=== PATIENT | male | born 1980 | race Caucasian/White ===

== ENCOUNTER 2024-11-15 02:05 | Inpatient (IN) | payer MEDICAID, SELFPAY ==
[2024-11-15] VITALS (20 sets, daily range): BP systolic 128–169; BP diastolic 85–113; PULSE 76–144; RESP 12–30; TEMP 36.1–36.7; O2SAT 90–100; BMI 26.2; BMI 26.0
--- NOTE | 2024-11-15 02:13 | ED.RN ---
DAD CALLED ABOUT PT AND WANTED TO LEAVE PHONE NUMBER MANDA JAYE [phone]
[2024-11-15] MEDS: Ondansetron 4 MG/2 ML Vial IV (02:15)
[2024-11-15] MEDS: MethylPREDNISolone 125 MG/2 ML Vial IV (02:15)
[2024-11-15] MEDS: Morphine 4 MG/ML Syringe IV (02:15)
[2024-11-15] MEDS: Ipratropium/Albuterol Sulfate 3 ML AMPUL.NEB INHALATION ×4 (02:15→19:14)
[2024-11-15] MEDS: 0.9% Normal Saline (1000mL) 1,000 ML 999 ML IV ×3 (02:16→04:38)
[2024-11-15 02:19] LABS: Absolute Lymphocyte Count 6.33 X10^3/uL (0.83-4.51); Absolute Neutrophil Count 10.3 X10^3/uL (2.0-7.7); Basophil% 0.5 % (0-1); Eosinophil# 0.66 X10^3/uL; Eosinophils% 3.5 % (0-5); Hematocrit 50.8 % (40-54); Lymphocyte # 6.33 X10^3/ul (0.83-4.51); Lymphocyte % 33.9 % (19-41); Mean Corp Hgb Conc 33.5 g/dL (32-36); Mean Corpuscular Volume 86.7 fL (80-94); Mean Platelet Vol. 9.2 fl (6.2-12.0); Monocyte# 1.26 X10^3/uL; Monocyte% 6.7 % (0-10); NRBC Flagged by Analyzer 0 % (0-5); Neutrophil # 10.25 X10^3/uL (2.7-7.7); POSITIVE DIFFERENTIAL YES; POSITIVE MORPHOLOGY YES; Platelet Count 349 K/mm3 (150-450); RBC Distribution Width CV 12.2 % (11.6-14.6); RBC Distribution Width SD 38.5 fl (35.1-43.9); Red Blood Count 5.86 M/mm3 (4.6-6.2); White Blood Count 18.7 K/mm3 (4.4-11.0)
[2024-11-15 02:30] LABS: Allen Test Positive; Base Excess -2 mmol/L (-2 to +2); Blood Gas Specimen Type ART; Mode Not entered; O2 Delivery Device BiPAP; PEEP 10; PIP 16; PO2 165 mmHG (75-100); RR 12; SITE R Radial; SO2 99 % (95-99); Total Carbon Dioxide 28 mmol/L; pCO2 68.8 mmHg (35-45); pH 7.19 (7.35-7.45)
[2024-11-15 02:35] LABS: Differential Indicated SCAN CRITERIA MET
--- NOTE | 2024-11-15 02:36 | CPS ---
Critical ABG values, Dr. Aguillon aware.
[2024-11-15 02:37] LABS: Anion Gap 5 (5-15); BUN 11 mg/dL (7-18); Calcium,Total 8.8 mg/dL (8.5-10.1); Chloride 106 mmol/L (98-107); Creatinine, Serum 0.85 mg/dL (0.70-1.30); EST Glomerular Filtration Rate 105 mL/min (>60); Est Glom Filt Rate - Afr Amer 127 mL/min (>60); Estimated Creatinine Clearance 124.26 ml/min; Glucose 192 mg/dL (74-106); Magnesium 2.3 mg/dL (1.6-2.6); Potassium 4.4 mmol/L (3.5-5.1); Sodium Level 135 mmol/L (136-145)
[2024-11-15 02:49] LABS: Lactic Acid 5.4 mmol/L (0.4-1.9)
--- NOTE | 2024-11-15 02:50 | RAD_ITS ---
INDICATION: dyspnea EXAMINATION/TECHNIQUE: X-RAY - XR Chest 1 View COMPARISON: None. Findings: 2 frontal views of the chest. LUNG PARENCHYMA: No acute focal airspace disease or mass lesion. PLEURA: No pleural effusion. No pneumothorax. HEART/GREAT VESSELS: Cardiomediastinal silhouette is unremarkable. BONES: Osseous structures are unremarkable for age. RAD/Chest 1 View (Portable) IMPRESSION: Chest with no acute disease. Electronically Signed: Chevy Ramos MD at 4:40 EST ,
[2024-11-15 03:35] LABS: Allen Test Positive; Base Excess -1 mmol/L (-2 to +2); Bicarbonate 24.9 mmol/L (22-26); Blood Gas Specimen Type ART; Mode Not entered; O2 Delivery Device BiPAP; PEEP 10; PIP 22; PO2 104 mmHG (75-100); RR 12; SITE R Radial; SO2 98 % (95-99); Total Carbon Dioxide 26 mmol/L; pCO2 47.7 mmHg (35-45); pH 7.33 (7.35-7.45)
[2024-11-15 03:37] LABS: Atypical Lymphocyte 2+ %; Differential Comment SCANNED
[2024-11-15 04:06] LABS: Procalcitonin 0.08 ng/mL (0.00-0.09)
[2024-11-15] MEDS: Ceftriaxone 2 GM in 0.9% Normal Saline (50mL MB+) 50 ML IV (04:09)
[2024-11-15] MEDS: Azithromycin 500 MG in 0.9% Normal Saline (250mL Bag) 250 ML 255 MG IV (04:38)
--- NOTE | 2024-11-15 04:46 | HP.PCM.HOS_ITS ---
[facility] - General General Date of Admission: 11/15/24 Date of Service: 11/15/24 Chief Complaint: Shortness of breath HPI Narrative JUAN CEE, is a 44 M who presented to [facility] on 11/15/2024 with severe shortness of breath. Patient has history of asthma and tobacco abuse. He smokes about 1 pack of cigarettes daily. He noted that he was hospitalized about 2 years ago at [facility] for a severe asthma exacerbation. He did not require intubation at that time. He was in his normal state of health earlier today. However, he developed acute shortness of breath with wheezing tonight and EMS was called. States he simply got up to go to the bathroom when he developed this. He lives at home with his dad. On arrival EMS noted that patient had significant increased work of breathing and was satting in the mid 80s on room air. On arrival to the ED here he was on BiPAP and had respiration rate in the 30s with oxygen saturations in the low 90s. Was tachycardic to the 140s. Labs showed WBC count 18, lactic acid 5.4. Initial ABG on BiPAP showed pH 7.19, pO2 165, pCO2 68. Patient was given a breathing treatment with significant improvement. Repeat ABG about 1 hour later while still on BiPAP showed pH 7.33 and pCO2 47. Chest x-ray was unremarkable. CTA chest with read pending but no PE noted and lung knight clear. COVID/flu/RSV negative. Given his suspected asthma exacerbation with acute respiratory failure, hospitalist was contacted for admission. I saw the patient at bedside in the ED. Patient had been weaned to 3 L nasal cannula when I saw him and was breathing comfortably on this with saturations in the mid to high 90s. He was fatigued appearing but was otherwise laying back comfortably in bed and conversing normally. Patient states he feels significantly better now than he did earlier tonight. Patient notes he has had intermittent mild shortness of breath over the past few weeks. Denies any fevers or chills or any URI symptoms. He has an old rescue inhaler that he tried using multiple times but he states it was not effective. Otherwise patient denies any pain or discomfort currently. No other acute concerns. [facility] Medical History Asthma Home Medications ?Medication ?Instructions ?Recorded ?Last Taken ?Type albuterol sulfate .ROUTE 11/15/24 Unknown History Allergy/AdvReac Type Severity Reaction Status Date / Time Unable to Assess Allergy Verified 11/15/24 02:06 Social History Smoking Status: Heavy Smoker (>10/day) ROS Constitutional Constitutional: Reports fatigue; Denies chills, fever(s) or weakness Eyes Eyes: Denies change in vision ENT HEENT: Denies nasal congestion or nasal discharge Cardiovascular Cardiovascular: Denies chest pain, edema or lightheadedness Respiratory/Chest Respiratory/Chest: Reports cough, shortness of breath at rest, shortness of breath with exertion and wheezing; Denies productive cough Gastrointestinal Gastrointestinal: Denies constipation, diarrhea, nausea or vomiting Musculoskeletal Musculoskeletal: Denies arthralgias or myalgias Neurologic Neurologic: Denies dizziness, focal weakness or headache(s) Vital Signs Vital Signs Vital Signs: 11/15/24 02:06 11/15/24 02:06 11/15/24 02:12 Temperature 97 F L Temperature Source Temporal Pulse Rate 144 H 128 H Respiratory Rate 30 H 26 H Respiratory Effort Short of Breath Labored Accessory Muscle Use Respiratory Depth Deep Respiratory Pattern Tachypnea Tachypnea Blood Pressure 128/113 H Blood Pressure Mean 118 Pulse Ox 90 99 Oxygen Delivery Method Bi-pap Bi-pap Oxygen Flow Rate (L/min) Fraction of Inspired Oxygen (FIO2) 50 11/15/24 02:30 11/15/24 02:30 11/15/24 02:55 Temperature 97.6 F L Temperature Source Temporal Pulse Rate 111 H 111 H 125 H Respiratory Rate 23 H 25 H 25 H Respiratory Effort Respiratory Depth Respiratory Pattern Normal Tachypnea Blood Pressure 128/113 H Blood Pressure Mean 118 Pulse Ox 99 99 Oxygen Delivery Method Bi-pap Oxygen Flow Rate (L/min) Fraction of Inspired Oxygen (FIO2) 30 50 11/15/24 03:06 11/15/24 04:00 11/15/24 04:41 Temperature 97.9 F Temperature Source Pulse Rate 104 H 93 85 Respiratory Rate 17 18 18 Respiratory Effort Respiratory Depth Respiratory Pattern Blood Pressure 130/89 H 147/93 H 155/95 H Blood Pressure Mean 102 111 115 Pulse Ox 99 98 98 Oxygen Delivery Method Bi-pap Bi-pap Oxygen Flow Rate (L/min) 30 Fraction of Inspired Oxygen (FIO2) 30 Weight Weight: 87.9 kg Body Mass Index (BMI) 26.2 Physical Exam Const alert, oriented x3, no apparent distress and average body habitus Constitutional Narrative: Middle-age male, mildly fatigued and unkempt appearing but otherwise laying back comfortably in bed, conversing normally, in no acute distress. General Appearance: cooperative and comfortable HEENT normocephalic, head/scalp atraumatic, hearing grossly normal bilaterally, nasal mucous membranes and turbinates normal and moist oral mucous membranes Eyes PERRL, EOMs intact bilaterally and conjunctivae normal Lymph Lymphatic: no lymphadenopathy noted Chest inspection of chest normal Resp normal respiratory effort and no use of accessory muscles Resp Narrative: Breathing comfortably on 3 L nasal cannula at rest. Moderate diffuse wheezing noted in bilateral lungs throughout but he does have good air movement bilaterally. No crackles noted. Cardio regular rate, regular rhythm, no murmurs and peripheral pulses 2+ throughout GI normal to inspection, nondistended, normoactive bowel sounds, soft to palpation, non-tender and non-distended Back/Spine normal ROM Extremity normal to inspection, full ROM and no pedal edema Skin no rashes or lesions noted Psych mental status grossly normal Results Lab / Micro Data 11/15/24 02:09 11/15/24 02:09 Labs: Laboratory Results - last 24 hr 11/15/24 02:09: WBC 18.7 H, RBC 5.86, Hgb 17.0 H, Hct 50.8, MCV 86.7, MCH 29.0, MCHC 33.5, RDW Std Deviation 38.5, RDW Coeff of Hilda 12.2, Plt Count 349, MPV 9.2, Immature Gran % (Auto) 0.400, Neut % (Auto) 55.0, Lymph % (Auto) 33.9, [place] % (Auto) 6.7, Eos % (Auto) 3.5, Baso % (Auto) 0.5, Absolute Neuts (auto) 10.3 H, Absolute Lymphs (auto) 6.33 H, Nucleated RBC % 0, Differential Comment SCANNED, Atypical Lymphocytes 2+, Sodium 135 L, Potassium 4.4, Chloride 106, Carbon Dioxide 24.0, Anion Gap 5, BUN 11, Creatinine 0.85, Estim Creat Clear Calc 124.26, Est GFR (MDRD) Af Amer 127, Est GFR (MDRD) Non-Af 105, BUN/Creatinine Ratio 13.0, Glucose 192 H, Lactic Acid 5.4 H*, Calcium 8.8, Magnesium 2.3 11/15/24 03:26: Procalcitonin 0.08 Micro: Microbiology 11/15/24 03:00 Mucosa - Nose SARS-CoV-2, Influenza & RSV (PCR) - Final ABG Data ABG results: ABG 11/15/24 11/15/24 02:25 03:32 Specimen Type ART ART Sample Site R Radial R Radial pH 7.19 L* 7.33 L Bicarbonate Actual 26.0 24.9 Total CO2 28 26 Base Excess -2 -1 O2 Saturation 99 98 O2 % 50.0 30.0 ABG pCO2 68.8 H* 47.7 H ABG pO2 165 H 104 H Chuy Test Positive Positive Respiration Rate 12 12 O2 Delivery Device BiPAP BiPAP Vent Mode Not entered Not entered Tidal Volume 450.0 POC PEEP 10 10 Peak Inspir Pressure 16 22 Crit Call To/Read Back Yes Blood Gas Notified Time 02:27:10 Imaging Radiology Impression Chest X-Ray 11/15/24 02:50 IMPRESSION: Chest with no acute disease. Electronically Signed: Chevy Ramos MD at 4:40 EST , Assessment & Plan Assessment/Plan (1) Asthma exacerbation: (2) Acute respiratory failure with hypoxia and hypercapnia: PLAN: Plan Patient is a 44-year-old male who presented [facility] ED on 11/15/2024 with shortness of breath. 1. Acute hypoxic and hypercapnic respiratory failure suspected secondary to asthma exacerbation ? Admit under inpatient status to ICU. Dust Collector Attendant consulted. Initial ABG on BiPAP in ED showed pH 7.19, pCO2 68. Given breathing treatment with repeat ABG on BiPAP that showed pH 7.33, pCO2 47. Weaned to 3 L nasal cannula in the ED and patient maintaining good oxygen saturations. Chest x-ray and CTA chest showed hyperinflation but otherwise were unremarkable. Patient does remain diffusely wheezy on exam. Seems most consistent with an asthma exacerbation. Will treat with IV steroids and scheduled DuoNebs for now. Wean supplemental oxygen as able. 2. Tobacco use disorder ? Smokes 1 pack of cigarettes per day. Discussed cessation. Denied need for nicotine replacement therapy while inpatient. 3. Elevated lactic acid ? Lactic acid 5.4 on admit. Presume secondary to severe increased work of breathing from asthma exacerbation. Follow-up repeat lactic acid. 4. Leukocytosis ? WBC count 18 on admit. Patient otherwise afebrile and noninfectious appearing, suspect reactive secondary to asthma exacerbation. Infectious workup negative to this point. Follow-up a.m. CBC and hold on antibiotics for now. DVT prophylaxis: Lovenox CODE STATUS: Full code, verified Expected disposition: Home, TBD Total clinical time spent by myself addressing the patient's medical issues, reviewing all the data, and collaborating with patient's care team: 55 minutes. Charges/Coding Visit Charges Inpatient E&M: 89786 Init Hosp L2
--- NOTE | 2024-11-15 04:52 | CT_ITS ---
INDICATION: hypoxia EXAMINATION: - CTA Chest WO/W Contrast Injection A radiation dose optimization technique was used for this scan. RADIATION DOSAGE (If Supplied By Facility): CTDIvol/DLP = ( 26.84 ) / ( 434.25 ) mGy/mGycm COMPARISON: Chest radiograph same day. FINDINGS: Contrast enhanced serial CTA axial images through the chest with coronal and sagittal reformatted series. Additional dedicated coronal and sagittal MIP reformatted series provided as well. IV Contrast dosage and agent: 100 cc [id number] IV. MEDIASTINUM: No acute thoracic aortic abnormality. No pulmonary artery filling defects. Mediastinum is otherwise unremarkable. LUNG PARENCHYMA: No acute pulmonary parenchymal abnormality. PLEURA: No pleural effusion. No pneumothorax. BONES: Osseous structures are unremarkable for age. UPPER ABDOMEN: Unremarkable. CT/CTA Chest W/WO Contrast IMPRESSION: No pulmonary embolus or acute aortic abnormality. No acute abnormality of the chest identified. Electronically Signed: Chevy Ramos MD at 6:51 EST ,
--- NOTE | 2024-11-15 05:01 | EX.ED.DYSGE1 ---
HPI History of Present Illness Chief Complaint: Shortness of Breath Informant: patient and EMS Narrative Narrative: Patient is a 44-year-old male with past medical history of asthma and tobacco abuse who states he smokes roughly 1 pack a day. He states he is never has had to be hospitalized secondary to his asthma. He states that he was overall feeling well around his baseline when this evening he developed shortness of breath that continued to worsen and therefore EMS was called. EMS states and they arrived the patient was awake but with increased work of breathing and satting in the mid 80s on room air. [facility] Medical History Asthma Home Medications ?Medication ?Instructions ?Recorded ?Last Taken ?Type albuterol sulfate 90 mcg/actuation inhalation shortness of breath 11/15/24 Unknown History aerosol inhaler Allergy/AdvReac Type Severity Reaction Status Date / Time Unable to Assess Allergy Verified 11/15/24 02:06 Social History Smoking Status: Heavy Smoker (>10/day) ROS [facility] ED Constitutional Constitutional ED: Reports sweats; Denies chills or fever(s) Eyes Eyes: Denies change in vision ENT ENT ED: Denies rhinorrhea or sore throat Cardiovascular Cardiovascular: Denies chest pain Respiratory/Chest Respiratory/Chest: Reports cough and dyspnea Gastrointestinal Gastrointestinal: Denies abdominal pain, diarrhea, nausea or vomiting Musculoskeletal Musculoskeletal: Denies myalgias Integumentary Denies rash Allergic/Immunologic Allergic/Immunologic ED: Denies mouth swelling or tongue swelling EXAM Physical Exam Const Vital Signs: 11/15/24 02:06 11/15/24 02:06 11/15/24 02:12 Temperature 97 F L Temperature Source Temporal Pulse Rate 144 H 128 H Respiratory Rate 30 H 26 H Respiratory Effort Short of Breath Labored Accessory Muscle Use Respiratory Depth Deep Respiratory Pattern Tachypnea Tachypnea Blood Pressure 128/113 H Blood Pressure Mean 118 Pulse Ox 90 99 Oxygen Delivery Method Bi-pap Bi-pap Oxygen Flow Rate (L/min) Fraction of Inspired Oxygen (FIO2) 50 11/15/24 02:30 11/15/24 02:30 11/15/24 02:55 Temperature 97.6 F L Temperature Source Temporal Pulse Rate 111 H 111 H 125 H Respiratory Rate 23 H 25 H 25 H Respiratory Effort Respiratory Depth Respiratory Pattern Normal Tachypnea Blood Pressure 128/113 H Blood Pressure Mean 118 Pulse Ox 99 99 Oxygen Delivery Method Bi-pap Oxygen Flow Rate (L/min) Fraction of Inspired Oxygen (FIO2) 30 50 11/15/24 03:06 11/15/24 04:00 11/15/24 04:41 Temperature 97.9 F Temperature Source Pulse Rate 104 H 93 85 Respiratory Rate 17 18 18 Respiratory Effort Respiratory Depth Respiratory Pattern Blood Pressure 130/89 H 147/93 H 155/95 H Blood Pressure Mean 102 111 115 Pulse Ox 99 98 98 Oxygen Delivery Method Bi-pap Bi-pap Oxygen Flow Rate (L/min) 30 Fraction of Inspired Oxygen (FIO2) 30 11/15/24 05:00 11/15/24 05:06 Temperature Temperature Source Pulse Rate 96 Respiratory Rate 20 H Respiratory Effort Respiratory Depth Respiratory Pattern Blood Pressure 136/95 H Blood Pressure Mean 108 Pulse Ox 99 98 Oxygen Delivery Method Nasal Cannula Nasal Cannula Oxygen Flow Rate (L/min) 3 3 Fraction of Inspired Oxygen (FIO2) Positive well nourished and well developed Constitutional Narrative: Patient is an moderate respiratory distress with tachypnea and accessory muscle use as well as retraction General Appearance ED: well developed and diaphoretic; Negative for pallor HEENT HEENT Narrative: No tongue or lip swelling no oral lesions no airway edema or compromise Eyes PERRL and EOMs intact bilaterally General Eye ED: Negative for pale conjunctiva or scleral icterus Neck supple and no JVD Resp Resp Narrative: Patient is an moderate respiratory distress with tachypnea retractions and accessory muscle use Breath sounds are severely diminished throughout with diffuse inspiratory and expiratory wheezing Cardio regular rhythm Rate: tachycardic GI normal to inspection, nondistended, normoactive bowel sounds, non-tender, non-distended and no masses Auscultation: normoactive bowel sounds Palpation: soft Extremity normal to inspection Extremity Narrative: No asymmetric edema no pitting edema negative Homans' sign bilaterally Neuro oriented x3, CN's II-XII intact bilaterally and no sensory deficits noted Sensorium / Orientation: alert Motor Exam: strength 5/5 throughout Psych mental status grossly normal Skin no rashes or lesions noted General Skin Exam: Negative for jaundice or pallor MDM MDM MDM Narrative Medical decision making narrative: Patient arrived to the ER and moderate to severe respiratory distress. EMS reported that his pulse oximeter was in the mid 80s. With his history of asthma and smoking there is concern for asthma/COPD exacerbation versus pneumonia versus pneumothorax versus viral infection such as COVID versus influenza versus RSV. The patient was placed on BiPAP based on his hypoxia and severe work of breathing. Initial blood gas confirmed his tachypnea and hypoxia with respiratory acidosis and elevated pCO2. However after being on BiPAP with improvement of his work of breathing and oxygenation his ABG returned to normal. Chest x-ray revealed no acute pneumonia pneumothorax or pleural effusion. With the patient's sudden onset of symptoms there was concern for potential missed pneumonia or pulmonary pathology such as a PE so therefore a CTA was obtained which also revealed no acute finding. After receiving his steroids and breathing treatments as well as BiPAP his work of breathing improved/resolved but based on his sudden onset of symptoms there is concern that will relapse/progress and therefore I feel the patient needs to be watched in the hospital. The case was discussed with the hospitalist who does agree with this and therefore he will be admitted for continued care History & Record Review Discussion w/independent historian: EMS personnel and Patient Lab Data Attestation: I reviewed the patient's lab results. Labs: Laboratory Results - last 24 hr 11/15/24 11/15/24 02:09 03:26 WBC 18.7 H RBC 5.86 Hgb 17.0 H Hct 50.8 MCV 86.7 MCH 29.0 MCHC 33.5 RDW Std Deviation 38.5 RDW Coeff of Hilda 12.2 Plt Count 349 MPV 9.2 Immature Gran % (Auto) 0.400 Neut % (Auto) 55.0 Lymph % (Auto) 33.9 [place] % (Auto) 6.7 Eos % (Auto) 3.5 Baso % (Auto) 0.5 Absolute Neuts (auto) 10.3 H Absolute Lymphs (auto) 6.33 H Nucleated RBC % 0 Differential Comment SCANNED Atypical Lymphocytes 2+ Sodium 135 L Potassium 4.4 Chloride 106 Carbon Dioxide 24.0 Anion Gap 5 BUN 11 Creatinine 0.85 Estim Creat Clear Calc 124.26 Est GFR (MDRD) Af Amer 127 Est GFR (MDRD) Non-Af 105 BUN/Creatinine Ratio 13.0 Glucose 192 H Lactic Acid 5.4 H* Calcium 8.8 Magnesium 2.3 Procalcitonin 0.08 ABG Data ABG results: ABG 11/15/24 11/15/24 02:25 03:32 Specimen Type ART ART Sample Site R Radial R Radial pH 7.19 L* 7.33 L Bicarbonate Actual 26.0 24.9 Total CO2 28 26 Base Excess -2 -1 O2 Saturation 99 98 O2 % 50.0 30.0 ABG pCO2 68.8 H* 47.7 H ABG pO2 165 H 104 H Chuy Test Positive Positive Respiration Rate 12 12 O2 Delivery Device BiPAP BiPAP Vent Mode Not entered Not entered Tidal Volume 450.0 POC PEEP 10 10 Peak Inspir Pressure 16 22 Crit Call To/Read Back Yes Blood Gas Notified Time 02:27:10 Radiography Diagnostic Testing: Clinical Impression(s) from Imaging Studies Chest X-Ray 11/15/24 02:50 IMPRESSION: Chest with no acute disease. Electronically Signed: Chevy Ramos MD at 4:40 EST , Chest CTA 11/15/24 04:52 IMPRESSION: No pulmonary embolus or acute aortic abnormality. No acute abnormality of the chest identified. Electronically Signed: Chevy Ramos MD at 6:51 EST , Chest x-ray as interpreted by the emergency medicine physician reveals no acute infiltrate pneumothorax or pleural effusion Management Discussion w/another healthcare provider: Hospitalist Critical Care Time Critical Care Time: Yes Critical care time (excluding procedures): Discussing w/Patient &/or Family/Workforce Development Specialist, Arranging Admission or Transfer and - (Please note critical care time of 31 minutes) Discharge Plan Dx/Rx/DC Orders Clinical Impression: Acute respiratory failure with hypoxia, Tobacco abuse, Asthma, Leukocytosis Disposition Disposition: Acute Care Hospital [facility] Discharge Date/Time: 11/15/24 06:43
[2024-11-15 06:16] LABS: Reflex Lactate? Y
[2024-11-15 07:39] LABS: Lactic Acid 2.5 mmol/L (0.4-1.9)
[2024-11-15] MEDS: Enoxaparin 40 MG/0.4 ML Syringe SC (10:26)
--- NOTE | 2024-11-15 12:12 | CASEMGMT ---
Social Work SW met with pt to discuss advance directives. Pt has not completed documents and is not interested in additional information at this time. KELSEY Lees
--- NOTE | 2024-11-15 12:45 | CASEMGMT ---
Addendum entered by Kalpesh Browne 11/16/24 11:31: 1/9: 1245: Pt states he buys inhalers off the street and has also purchased OTC inhalers @ [employer], stating in the past week he went through about 6 of them. EVON CHAN asked pt if he meant he used the inhaler 6 times and he states, No, I didn't just use it 6 times, I actually went through 6 inhalers because I couldn't breath. EVON CHAN instructed pt on importance of going to ER if he is struggling to breath instead of self-medicating. Also instructed on importance of f/u with PCP for maintenance/follow-up after discharge from the hospital. He voices understanding. Addendum entered by Kalpesh Browne 11/15/24 16:48: Pt made aware of appt scheduled @ [facility] on 11/21 @ 10 AM and that this info will be on his discharge paperwork. Addendum entered by Kalpesh Browne 11/15/24 15:23: CPS made aware pt would like smoking cessation information. Addendum entered by Kalpesh Browne 11/15/24 14:21: EVON CHAN to room to notify pt of appt w/[facility] 11/21. Pt sleeping. EVON CAHN did not awaken pt at this time. Original Note: RN CM [employer]ER ROCIO?to room to meet with patient for initial transition planning/care coordination assessment. EVON CHAN?introduced self and role at [facility]. Pt voices understanding and consents to assessment?at this time. Pt resting in bed in no distress at this time. Pt is A/O at this time and answers all questions appropriately. Care providers, pharmacy, and demographics verified/updated at this time. Strata:?1 PCP: No PCP. States he hasn't been to PCP in about 7 yrs. He states he has been to [facility] in the past and would like to go back. Call placed to [facility]. They do not show any record of pt being seen by PCP, but may have seen SW there. Appt scheduled w/[place], [employer] AND DISPLAYS SALES REPRESENTATIVE, for 11/21 @ 10 AM. This was added to pt's discharge plan. Specialists: none Preferred Pharmacy: [facility] @ discharge. Pt would like [id number]. Insurance: [employer] Prescription Benefit: yes Living Will/HPOA: Pt does not currently have LW/HCPOA and declines info at this time. Pt made aware that he can contact SW as an out-pt and make appt in the future if he decides he would like to talk with someone about this or would like to utilize [facility] social work for advanced directive completion. LNOK: Father, Julien, is only contact listed. Pt states he has 4 daughters and 1 son. He states one of his daughter's is 23 yrs-old and states she has a restraining order against him, stating this has been in place for about 5 yrs and states he is not sure why. His other children are 12, 10, 8, and states his youngest child is one-month old. Living Arrangements: Transportation:?Pt does not drive. Either his dad or his sister help w/transportation and states one of them can take him home @ discharge. DME: Denies using any DME and denies needs. He states he does have a pulse ox but never uses it. No home O2. He states if O2 is needed @ discharge he would like to use [employer]. HHC/SNF: No hx of either. No needs identified. Pt wishes to return home and states has no concerns with going home at time of discharge. Pt states he smokes about 1 PPD and is interested in smoking cessation. CM?to follow for home oxygen needs and any further discharge planning/needs. Pt voices no further concerns/needs at this time. Advised pt to ask for CM?if any further questions/concerns/needs arise. Voices understanding. PLAN: Home Follow for possible home O2 needs @ discharge. Kyra MTZ RN, CM
[2024-11-15] MEDS: Magnesium Sulfate 2 GM in Dextrose 5%-Water (100mL Bag) 100 ML IV (14:58)
--- NOTE | 2024-11-15 15:30 | PCM.HOSP.N ---
Hospitalist Note Patient found to be rhinovirus positive. Is an asthma exacerbation, continue IV steroids. Patient was refusing DuoNebs as he felt it was making him worse and said he would only take an inhaler like his rescue inhaler. Attempted to educate patient but he was adamant who ultimately became agreeable. Additionally he reports that in the past when he has had severe exacerbations magnesium has been helpful for him, sometimes magnesium is used in severe asthma exacerbations and given this is work from in the past we will also order this. Not presently hypoxic but does have diffuse wheezing. Continue IV steroids and encourage use of nebs
[2024-11-15] MEDS: Ipratropium 0.5 MG/2.5 ML SOLUTION INHALATION (15:35)
[2024-11-15] MEDS: guaiFENesin 1,200 MG Tablet 1200 MG PO (19:48)
[2024-11-16] VITALS (9 sets, daily range): BP systolic 137; BP diastolic 59–87; PULSE 74–120; RESP 13–19; TEMP 36.3–36.8; O2SAT 90–96; BMI 26.4
[2024-11-16] MEDS: Ipratropium/Albuterol Sulfate 3 ML AMPUL.NEB INHALATION ×4 (00:30→10:53)
[2024-11-16 08:09] LABS: Hematocrit 45.5 % (40-54); Hemoglobin 15.1 g/dL (13.0-16.5); Mean Corp Hgb Conc 33.2 g/dL (32-36); Mean Corpuscular Hgb 28.5 pg (27.0-32.0); Mean Corpuscular Volume 85.8 fL (80-94); Mean Platelet Vol. 9.2 fl (6.2-12.0); Platelet Count 254 K/mm3 (150-450); RBC Distribution Width CV 12.5 % (11.6-14.6); RBC Distribution Width SD 38.5 fl (35.1-43.9); White Blood Count 19.6 K/mm3 (4.4-11.0)
[2024-11-16 08:24] LABS: Anion Gap 4 (5-15); BUN 18 mg/dL (7-18); BUN/Creat Ratio 18.9 RATIO (10-20); Calcium,Total 9.1 mg/dL (8.5-10.1); Chloride 110 mmol/L (98-107); Creatinine, Serum 0.95 mg/dL (0.70-1.30); EST Glomerular Filtration Rate 92 mL/min (>60); Est Glom Filt Rate - Afr Amer 112 mL/min (>60); Estimated Creatinine Clearance 111.18 ml/min; Glucose 141 mg/dL (74-106); Potassium 4.2 mmol/L (3.5-5.1); Sodium Level 138 mmol/L (136-145)
[2024-11-16] MEDS: guaiFENesin 1,200 MG Tablet 1200 MG PO (09:00)
--- NOTE | 2024-11-16 11:20 | CASEMGMT ---
Addendum entered by Kalpesh Browne 11/16/24 13:27: Nebulizer Rx solutions have been e-scribed to [facility] retail pharm. Call placed to Lili in the pharmacy who states no issues w/insurance. They are getting Rx's ready. Pt states he will pick them up from the pharmacy on his way out of the hospital. Addendum entered by Kalpesh Browne 11/16/24 12:17: Home O2 amb testing has been completed. Pt does not qualify for any home O2. Addendum entered by Kalpesh Browne 11/16/24 12:14: Per Arnoldo, nebulizer does not require PA and he states will deliver this to pt's room shortly. Original Note: EVON CHAN NOTE: Per Dr Schaeffer, pt will need a nebulizer @ discharge and she states pt may be medically ready to discharge home today. EVON CHAN to room. He states he is willing to get one and willing to use it once he gets home. He states to get this from [employer], as well as O2, if he qualifies. Pt confirms he has a functioning pulse ox @ home and he knows how to use it. Script for nebulizer obtained from Dr Schaeffer and sent to [employer] via [employer] and made aware this will need delivered to pt's room today. Kyra MTZ RN, CM
--- NOTE | 2024-11-16 13:03 | PCM.DC ---
Discharge Instructions Diet Discharge Diet: No restrictions DC O2, CPAP, BIPAP needs RN Home O2 Qualification: Home O2 Qualification: Is the patient on home oxygen No 11/16/24 09:04 Home O2 Qualification: AT REST 1- Pulse Ox at rest 96 11/16/24 09:04 Home O2 Qualification: WITH AMBULATION 1- Pulse Ox with ambulation 92 11/16/24 09:04 1- Oxygen Flow Rate with 0 11/16/24 09:04 ambulation Home O2 Discharge instructions: No Dressing / Incision Discharge Activity: - (Increase activity as tolerated) Follow Up Care Test Results: Test results from this visit will be discussed in further detail at your follow-up appointment, if applicable. Discharge Plan Admission Admit Date/Time: 11/15/24 05:59 Primary Reason for Your Visit: Shortness of breath Attending Provider: Camille Schaeffer Primary Care Provider: Marianne Us [facility] Consulting Providers: Jose Martin Alonso Instructions Patient Instructions: Acute Severe Asthma Additional Instructions / Restrictions: -Please follow-up with the new provider you have been scheduled with on 11/21/2024 at 10 AM -You will be discharged on a prednisone taper: -60 mg daily x3 days -50mg daily x3 days -40mg daily x3 days -30mg daily x3 days -20mg daily x3 days -10mg daily x3 days -You will be discharged with nebulizer treatments for home Discharge Orders/Prescriptions Prescriptions: New ipratropium-albuterol 0.5 mg-3 mg(2.5 mg base)/3 mL Solution For Nebulization 3 ml inhalation Q6H Qty: 180 0RF prednisone 20 mg Tablet See Taper PO BREAKFAST Qty: 32 0RF Taper: Prednisone Taper 60 mg WITH BREAKFAST for 3 Days and 0 Hour 50 mg WITH BREAKFAST for 3 Days and 0 Hour 40 mg WITH BREAKFAST for 3 Days and 0 Hour 30 mg WITH BREAKFAST for 3 Days and 0 Hour 20 mg WITH BREAKFAST for 3 Days and 0 Hour 10 mg WITH BREAKFAST for 3 Days and 0 Hour albuterol sulfate 90 mcg/actuation HFA aerosol inhaler See Rx Instructions .ROUTE .COMPLEX PRN (Reason: shortness of breath or wheezing) Qty: 8.5 0RF Rx Instructions: 1-2 puffs every 4-6 hours as needed for shortness of breath or wheezing Discontinued albuterol sulfate 90 mcg/actuation HFA aerosol inhaler inhalation Referrals / Follow Up: Marianne Us, [employer] [Primary Care Provider] - 11/21/24 10:00 am Disposition Disposition (needs filled in before D/C Order can be placed): Home, Self Care
--- NOTE | 2024-11-16 13:28 | DS.PCM_ITS ---
Providers Date of Admission: 11/15/24 Date of Discharge: 11/16/24 Primary Care Physician: ROSA MARIA Edgar, [employer] Reason For Visit: ACUTE RESPIRATORY FAILURE W/ HYPOXIA Diagnosis Discharge Diagnosis (1) Asthma exacerbation: Status: Acute Code(s): J45.901 - Unspecified asthma with (acute) exacerbation (2) Acute respiratory failure with hypoxia and hypercapnia: Status: Acute Code(s): J96.01 - Acute respiratory failure with hypoxia; J96.02 - Acute respiratory failure with hypercapnia Plan # Asthma exacerbation # Tobacco abuse Medications at Discharge Home Medications albuterol sulfate 90 mcg/actuation aerosol inhaler See Rx Instructions .Route .COMPLEX PRN shortness of breath or wheezing #8.5 grams 11/16/24 ipratropium 0.5 mg-albuterol 3 mg (2.5 mg base)/3 mL nebulization soln 3 ml inhalation Q6H #180 mL 11/16/24 prednisone 20 mg tablet See Taper PO BREAKFAST #32 tabs 11/16/24 Hospital Course Summary of Care Provided Minutes Spent on Discharge: 23 Hospital Course: Per HPI: JUAN CEE, is a 44 M who presented to [facility] on 11/15/2024 with severe shortness of breath. Patient has history of asthma and tobacco abuse. He smokes about 1 pack of cigarettes daily. He noted that he was hospitalized about 2 years ago at [facility] for a severe asthma exacerbation. He did not require intubation at that time. He was in his normal state of health earlier today. However, he developed acute shortness of breath with wheezing tonight and EMS was called. States he simply got up to go to the bathroom when he developed this. He lives at home with his dad. On arrival EMS noted that patient had significant increased work of breathing and was satting in the mid 80s on room air. On arrival to the ED here he was on BiPAP and had respiration rate in the 30s with oxygen saturations in the low 90s. Was tachycardic to the 140s. Labs showed WBC count 18, lactic acid 5.4. Initial ABG on BiPAP showed pH 7.19, pO2 165, pCO2 68. Patient was given a breathing treatment with significant improvement. Repeat ABG about 1 hour later while still on BiPAP showed pH 7.33 and pCO2 47. Chest x-ray was unremarkable. CTA chest with read pending but no PE noted and lung knight clear. COVID/flu/RSV negative. Given his suspected asthma exacerbation with acute respiratory failure, hospitalist was contacted for admission. INTERVAL HISTORY: Patient initially placed on BiPAP in ICU and improved with nebulizer treatments and IV steroids. On day of discharge respiratory status much improved with less wheezing and significantly improved work of breathing. Discussed discharge versus another day of IV steroids and nebulizers and patient adamant he would like to go home. Patient was ambulated and did not require oxygen but was agreeable to nebulizer prescription, outpatient steroids and a new prescription for an inhaler sent. Patient with no new or acute complaints on day of discharge and feeling much better. Reports that he will come back to the hospital if he were to worsen or needed to. Of note strongly advised against resumption of smoking/tobacco use. Patient not interested in smoking cessation at this time Physical Exam Narrative General: Alert, oriented, no apparent distress HEENT: Atraumatic, normocephalic Eyes: Anicteric, normal conjunctiva, extraocular movements grossly intact Neck: Supple Respiratory: Improved work of breathing and improved airflow Cardiovascular: Regular rate and rhythm GI: Soft, nontender, nondistended Extremities: No edema Musculoskeletal: Moving all extremities Neuro: No overt focal neurological deficits Skin: No rashes appreciated Psych: Overall cooperative Weight / BMI Weight Weight: 88.2 kg Body Mass Index (BMI) 26.4 ABG / Lab / Microbiology Data 11/16/24 07:51 11/16/24 07:51 Laboratory: Laboratory Results - last 24 hr 11/16/24 07:51: WBC 19.6 H, RBC 5.30, Hgb 15.1, Hct 45.5, MCV 85.8, MCH 28.5, MCHC 33.2, RDW Std Deviation 38.5, RDW Coeff of Hilda 12.5, Plt Count 254, MPV 9.2, Sodium 138, Potassium 4.2, Chloride 110 H, Carbon Dioxide 24.0, Anion Gap 4 L, BUN 18, Creatinine 0.95, Estim Creat Clear Calc 111.18, Est GFR (MDRD) Af Amer 112, Est GFR (MDRD) Non-Af 92, BUN/Creatinine Ratio 18.9, Glucose 141 H, Calcium 9.1 Microbiology: Microbiology 11/15/24 08:20 Mucosa - Nasopharyngeal Respiratory Panel (PCR) - Final Rhinovirus 11/15/24 03:00 Mucosa - Nose SARS-CoV-2, Influenza & RSV (PCR) - Final D/C Instructions Discharge Diet: No restrictions DC O2, CPAP, BIPAP Needs RN Home O2 Qualification: Home O2 Qualification: Is the patient on home oxygen No 11/16/24 09:04 Home O2 Qualification: AT REST 1- Pulse Ox at rest 96 11/16/24 09:04 Home O2 Qualification: WITH AMBULATION 1- Pulse Ox with ambulation 92 11/16/24 09:04 1- Oxygen Flow Rate with 0 11/16/24 09:04 ambulation PSN CPAP & BiPAP: BiPAP & CPAP Settings per PSN Mode AVAPS 11/15/24 15:38 Bipap Delivery Device Face Mask 11/15/24 15:38 BiPAP Inspiratory Pressure 16 11/15/24 02:12 BiPAP Expiratory Pressure 10 11/15/24 15:38 BiPAP Rate 12 11/15/24 15:38 Fraction of Inspired Oxygen ( 30 11/15/24 15:38 FIO2) Home O2 Discharge instructions: No Meaningful Use Info Meaningful Use Meaningful Use Diagnoses (Choose all that apply): None applicable Ischemic Stroke Statin Dosing Therapy Reference: STATIN DOSE THERAPY REFERENCE: * Patients > 75 years receive moderate or high dose statin therapy. * Patients 75 years or YOUNGER should receive HIGH intensity statin dose unless contraindicated. You will be required to document reason for non-treatment if statin daily dose does not meet guidelines. HIGH DOSE STATIN THERAPY DAILY Atorvastatin > than or = to 40 mg Rosuvastatin > than or = to 20 mg Amlodipine + Atorvastatin > than or = to 2.5/40 mg Ezetimibe + Simvastatin 10/80 mg Simvastatin 80mg Discharge Plan Admission Admit Date/Time: 11/15/24 05:59 Primary Reason for Your Visit: Shortness of breath Attending Provider: Camille Schaeffer Primary Care Provider: Marianne Us [facility] Consulting Providers: Jose Martin Alonso Instructions Patient Instructions: Acute Severe Asthma Additional Instructions / Restrictions: -Please follow-up with the new provider you have been scheduled with on 11/21/2024 at 10 AM -You will be discharged on a prednisone taper: -60 mg daily x3 days -50mg daily x3 days -40mg daily x3 days -30mg daily x3 days -20mg daily x3 days -10mg daily x3 days -You will be discharged with nebulizer treatments for home Discharge Orders/Prescriptions Prescriptions: New ipratropium-albuterol 0.5 mg-3 mg(2.5 mg base)/3 mL Solution For Nebulization 3 ml inhalation Q6H Qty: 180 0RF prednisone 20 mg Tablet See Taper PO BREAKFAST Qty: 32 0RF Taper: Prednisone Taper 60 mg WITH BREAKFAST for 3 Days and 0 Hour 50 mg WITH BREAKFAST for 3 Days and 0 Hour 40 mg WITH BREAKFAST for 3 Days and 0 Hour 30 mg WITH BREAKFAST for 3 Days and 0 Hour 20 mg WITH BREAKFAST for 3 Days and 0 Hour 10 mg WITH BREAKFAST for 3 Days and 0 Hour albuterol sulfate 90 mcg/actuation HFA aerosol inhaler See Rx Instructions .ROUTE .COMPLEX PRN (Reason: shortness of breath or wheezing) Qty: 8.5 0RF Rx Instructions: 1-2 puffs every 4-6 hours as needed for shortness of breath or wheezing Discontinued albuterol sulfate 90 mcg/actuation HFA aerosol inhaler inhalation Referrals / Follow Up: Marianne Us, [employer] [Primary Care Provider] - 11/21/24 10:00 am Disposition Disposition (needs filled in before D/C Order can be placed): Home, Self Care Charges/Coding Visit Charges Inpatient E&M: 58341 Disch Hosp
== END 2024-11-16 14:05 | disposition home or self-care (01) | DRG 141 ==
LOC: ED 05:01 → ICU 06:14
PROVIDERS: Admitting Provider Hospitalist; Emergency Provider Emergency Medicine; Visit Provider Internal Medicine
DX: J45.901 Unspecified asthma with (acute) exacerbation (principal); J96.02 Acute respiratory failure with hypercapnia; J96.01 Acute respiratory failure with hypoxia; F17.210 Nicotine dependence, cigarettes, uncomplicated; D72.828 Other elevated white blood cell count; B97.89 Other viral agents as the cause of diseases classified elsewhere; Z53.29 Procedure and treatment not carried out because of patient's decision for other reasons; Z20.828 Contact with and (suspected) exposure to other viral communicable diseases
CPT/HCPCS: 36415; 36600; 71045; 71275; 80048; 82803; 83605; 83735; 84145; 85025; 85027; 87040; 87631; 87633; 94002; 94640; 94668; 94762; 99285; 99406; Q9967; A4216; J0696; J2405